=== PATIENT | female | born 1990 | race Caucasian/White ===

== ENCOUNTER 2018-11-06 14:46 | Emergency (ER) | payer MEDICAID | END 2018-11-06 19:01 | disposition home or self-care (01) | LOC: FTE 14:46 | DX: S01.511A Laceration without foreign body of lip, initial encounter (principal); S50.01XA Contusion of right elbow, initial encounter; S80.01XA Contusion of right knee, initial encounter; S80.11XA Contusion of right lower leg, initial encounter; Y04.8XXA Assault by other bodily force, initial encounter | CPT/HCPCS: 99283; Z7502 ==